=== PATIENT | male | born 1950 | race African-American/Black ===

== ENCOUNTER 2017-10-12 11:22 | Outpatient (CLI) | payer OTHER ==
[~2017-10-12 11:22] MED LIST: MICARDIS20 MG; MOTRIN800 MG PO; NORVASC2.5 M1; PERCOCET 5/3251 TAB PO; POLY119PG PO; PROVENTIL S1 ML/5 MG; SINGULAIR4 MG; SURFAK240 M1 PO
== END 2017-10-12 11:24 | disposition home or self-care (01) ==
LOC: NUCLEAR 11:22
DX: I87.2 Venous insufficiency (chronic) (peripheral) (principal)

== ENCOUNTER 2018-10-06 10:25 | Emergency (ER) | payer OTHER ==
[~2018-10-06] VITALS: Ht 172.7 cm; Wt 86.2 kg
== END 2018-10-06 12:22 | disposition home or self-care (01) ==
LOC: ER 10:25
DX: L50.8 Other urticaria (principal)

== ENCOUNTER 2025-05-15 20:08 | Emergency (ER) | payer OTHER ==
[~2025-05-15] VITALS: Ht 172.7 cm; Wt 83.9 kg
[2025-05-16] MEDS ORDERED: DIPHENHYDRAMINE HCL 50 MG/ML VIAL 1ML IV STA ×2 (00:02→06:32)
[2025-05-16] MEDS ORDERED: METHYLPREDNISOLONE SOD SUCC 125 MG VIAL IV STA ×2 (00:02→06:32)
[2025-05-16] MEDS ORDERED: FAMOTIDINE/PF 20 MG/2 ML VIAL IV PUSH STA ×2 (00:03→06:32)
[2025-05-16] MEDS ORDERED: EPINEPHRINE HCL/PF 1 MG/ML AMPUL SUBCUTANEO STA (00:03)
[2025-05-16] MEDS ORDERED: DIPHENHYDRAMINE HCL 50 MG/ML VIAL 1ML ONE ×2 (00:11→06:50)
[2025-05-16] MEDS ORDERED: EPINEPHRINE HCL/PF 1 MG/ML AMPUL ONE (00:11)
[2025-05-16] MEDS ORDERED: METHYLPREDNISOLONE SOD SUCC 125 MG VIAL ONE ×2 (00:11→06:50)
[2025-05-16] MEDS ORDERED: FAMOTIDINE/PF 20 MG/2 ML VIAL ONE ×2 (00:11→06:51)
[2025-05-16 01:04] LABS: URINE APPEARANCE Clear; URINE BILIRRUBIN Negative (NEGATIVE); URINE BLOOD Negative; URINE COLOR Yellow; URINE GLUCOSE Negative (NEGATIVE); URINE KETONE Negative (NEGATIVE); URINE LEUKOCYTE Negative; URINE NITRATE Negative; URINE PROTEIN Negative (NEGATIVE); URINE UROBILINOGEN 0.2 E.U./dl
[2025-05-16 01:06] LABS: URINE BACTERIA 5.9 uL (0.0-1933)
[2025-05-16 01:12] LABS: URINE CAST 0.00 uL (0.0-1.40); URINE EPITHELIAL CELLS 0.1 uL (0.0-38.8); URINE RBC 1.0 uL (0.0-20.8); URINE WBC 0.4 uL (0.0-23.2)
[2025-05-16] MEDS ORDERED: WATER FOR INJ.,BACTERIOSTATIC 30 ML VIAL IJ ONE (06:52)
[2025-05-16] MEDS ORDERED: MEDROLPACK PO (13:20)
[2025-05-16] MEDS ORDERED: XYZAL5 MG PO (13:20)
== END 2025-05-16 13:55 | disposition home or self-care (01) ==
LOC: ER 20:09
PROVIDERS: General Practice
DX: T50.905A Adverse effect of unspecified drugs, medicaments and biological substances, initial encounter (principal); Z88.2 Allergy status to sulfonamides
CPT/HCPCS: 96365; 99282; J1200; J3490